=== PATIENT | female | born 1990 | race Two or more races ===

== ENCOUNTER 2016-08-06 10:30 | Emergency (ER) | payer OTHER ==
[~2016-08-06] VITALS: Ht 162.6 cm; Wt 68.0 kg
[~2016-08-06 10:30] MED LIST: ANUSOL-HC21 GM PR; DOCUSATE CALCI240 MG PO; Motrin PO; SENNA8.6 M1 PO
[2016-08-06 10:50] VITALS: BP 110/74
[2016-08-06] MEDS ORDERED: XANAX0.5 MG PO (11:27)
[2016-08-06] MEDS ORDERED: ZIRGAN5 GM BOTH EYES (12:30)
[2016-08-06] MEDS ORDERED: ZOVIRAX400 MG PO (12:30)
== END 2016-08-06 12:38 | disposition home or self-care (01) ==
LOC: EME 10:30
DX: B00.59 Other herpesviral disease of eye (principal); F17.200 Nicotine dependence, unspecified, uncomplicated
CPT/HCPCS: 99281; 99284